=== PATIENT | male | born 1965 | race Caucasian/White ===

== ENCOUNTER 2016-12-02 11:18 | Emergency (ER) | payer OTHER ==
[2016-12-02 11:41] VITALS: BP 114/67; PULSE 63; RESP 16; O2SAT 97
[2016-12-02] MEDS ORDERED: LETS SOLN TOPICAL 1 EA SYR TP ONE (11:42)
--- NOTE | 2016-12-02 12:15 | UCPHY ---
H & P Time Seen by Provider: 12/02/16 11:43 Patient Type: New HPI/ROS: CHIEF COMPLAINT: Facial injury, hand laceration HISTORY OF PRESENT ILLNESS: 51-year-old male presents after cutting his right index finger with a block of wood which was "kicked back" when he was using a table saw. The piece of wood alcohol also struck his cheek any has a small laceration over his right cheek. No loss of consciousness. No other injuries. Otherwise well. REVIEW OF SYSTEMS: Aside from elements discussed in the HPI, a comprehensive 10-point review of systems was reviewed and is negative. PAST MEDICAL HISTORY: Denies. SOCIAL HISTORY: Last tetanus was 2-3 years ago. VITAL SIGNS: Reviewed by me; see NN. GENERAL: Well-developed, well-nourished, in no acute distress. HEENT: Head: Atraumatic, normocephalic. Face: T shaped laceration over the right cheek. No bony tenderness. Mild ecchymosis around area. A PERRL, EOMI , no nystagmus. Oropharynx: No trauma, normal occlusion. Neck: Nontender to palpation, no pain with range of motion, no adenopathy. EXTREMITIES: Right hand: 3 cm laceration over the radial aspect, right index finger, at the level of the PI PIP. Good flexion at the PIP ENT IP. Normal extension. Normal troponin sensation. Brisk capillary refill. Smoking Status: Never smoked Constitutional: Initial Vital Signs Temperature (C) 36.8 C 12/02/16 11:36 Heart Rate 63 12/02/16 11:36 Respiratory Rate 16 12/02/16 11:36 Blood Pressure 114/67 12/02/16 11:36 O2 Sat (%) 97 12/02/16 11:36 O2 Delivery Mode Room Air Allergies/Adverse Reactions: No Known Allergies Allergy (Verified 12/02/16 11:36) Home Medications: Medication Instructions Recorded NK [No Known Home Meds] 12/02/16 Medical Decision Making Procedures: Procedure: Laceration repair. The 2 cm laceration on the right index finger was anesthetized using Marcaine without epinephrine The wound was cleaned and irrigated per nursing and tech documentation. Laceration was then draped and explored. There were no deep structures involved. no joint involvement. No tendon injury was identified. The wound was repaired with Simple interrupted, 4 0 Prolene sutures The wound repair was simple. The procedure was performed by myself. Patient is aware the laceration will have a scar. Procedure: Laceration repair. The T shaped, 1 cm laceration on the right cheek was anesthetized using Marcaine with epinephrine. The wound was cleaned and irrigated per nursing and tech documentation. Laceration was then draped and explored. There were no deep structures involved. The wound was repaired with 6 0 Prolene, simple interrupted. The wound repair was simple. The procedure was performed by myself. Patient is aware the laceration will have a scar. ED Course/Re-evaluation: 51-year-old male presents with lacerations caused by piece of wood incising his right index finger and right cheek. Lacerations repaired. Differential Diagnosis: Differential diagnosis for the patient's injury was considered including but not limited to contusion, abrasion, laceration, fracture, open fracture, or dislocation. - Data Points Medications Given: Discontinued Medications Tetracaine/Epinephrine/Lidocaine (Lets Soln Topical) 1 ea TP EDNOW ONE Stop: 12/02/16 11:43 Last Admin: 12/02/16 11:45 Dose: 1 ea Departure - Departure Disposition: Home, Routine, Self-Care Clinical Impression: Finger laceration Qualifiers: Encounter type: initial encounter Qualified Code(s): S61.219A - Laceration without foreign body of unspecified finger without damage to nail, initial encounter Facial laceration Qualifiers: Encounter type: initial encounter Qualified Code(s): S01.81XA - Laceration without foreign body of other part of head, initial encounter Condition: Good Instructions: Laceration (ED), Facial Laceration (ED) Additional Instructions: Keep wound clean and dry. Clean suture line with a mixture of hydrogen peroxide and water. Apply a thin layer of antibiotic cream. Dress wound if desired. Suture removal in 6-7 days for the face, 10-12 days for the finger. Watch for signs of infection. No soaking wound in water. Showers are ok. No swimming until sutures are removed. Use Tylenol ibuprofen as needed for pain. Return to Urgent careif any concerns regarding infection. Referrals: Bladimir Hernández MD [Primary Care Provider] - As per Instructions - PQRS PQRS Measurement: Not applicable
[2016-12-08 17:18] VITALS: TEMP 97.9
== END 2016-12-02 13:10 | disposition home or self-care (01) ==
LOC: CED 11:18
PROC: 0HQ1XZZ Repair Face Skin, External Approach (ICD-10-PCS; principal; 2016-12-02)
PROC: 0HQFXZZ Repair Right Hand Skin, External Approach (ICD-10-PCS; principal; 2016-12-02)
DX: S61.210A Laceration without foreign body of right index finger without damage to nail, initial encounter (principal); S01.411A Laceration without foreign body of right cheek and temporomandibular area, initial encounter; W20.8XXA Other cause of strike by thrown, projected or falling object, initial encounter
CPT/HCPCS: 12001-PO; 12011-PO; 99202-PO; G0463-PO